=== PATIENT | male | born 1975 | race American Indian/Alaskan Native ===

== ENCOUNTER 2016-11-11 20:53 | Emergency (ER) | payer OTHER, MEDICAID ==
[2016-11-11 22:30] VITALS: BP 154/99
[2016-11-12] MEDS ORDERED: Acetaminophen/oxyCODONE 325-5 MG Tab PO ONE (00:04)
[2016-11-12] MEDS ORDERED: valACYclovir 1,000 MG Tab PO ONE (00:04)
--- NOTE | 2016-11-12 00:09 | EDM.PDOC ---
ED HPI GENERAL MEDICAL PROBLEM - General Chief Complaint: Abdominal Pain Stated Complaint: LEFT SIDE PAIN Time Seen by Provider: 11/12/16 00:03 Source of Information: Reports: Patient History Limitations: Reports: No Limitations - History of Present Illness INITIAL COMMENTS - FREE TEXT/NARRATIVE: 41-year-old male presents to the ED with left flank back and upper abdominal pain. States he's been having pain in this area for about 4 days. He appreciated the development of a rash in the left flank over the last 48 hours. Pain is perhaps a little bit better since this occurred. States he's had nausea and vomiting yesterday but none so far today. It's bowel function is normal. No fever or chills. Skin is super sensitive to touch even getting dressed or wearing a shirt bothers him. Onset: Gradual (Pain developed approximately November 07 but rash was appreciated November 10.) Onset Date: 11/10/16 Duration: Day(s): (Appreciated rash in his left flank.) Location: Reports: Back (Left flank left upper abdomen) Quality: Reports: Burning, Other (Skin is hyper-paresthetic.) Severity: Moderate Improves with: Reports: None Worsens with: Reports: Other Context: Denies: Activity (Touching the skin or surrounding skin causes exquisite pain.), Exercise, Lifting, Sick Contact, Trauma, Other Associated Symptoms: Reports: Loss of Appetite, Malaise. 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.) Left Upper Abdomen Pain Score (Numeric/FACES): 7 - Related Data Allergies Allergy/AdvReac Type Severity Reaction Status Date / Time No Known Allergies Allergy Verified 11/11/16 22:26 Home Meds: Home Meds Lisinopril 40 mg PO DAILY 11/11/16 [History] Metoprolol Tartrate 25 mg PO DAILY 11/11/16 [History] oxyCODONE HCl/Acetaminophen [Percocet 5-325 mg Tablet] 1 - 2 each PO Q4H PRN # 30 tablet 11/12/16 [Rx] valACYclovir HCl [valACYclovir] 1,000 mg PO TID #21 tablet 11/12/16 [Rx] Past Medical History Cardiovascular History: Reports: Hypertension Social & Family History - Living Situation & Occupation Living situation: Reports: with Significant Other Occupation: Employed ED ROS GENERAL - Review of Systems Review Of Systems: See Below Constitutional: Reports: Malaise, Fatigue, Decreased Appetite (The last 3 days.) . Denies: Fever, Chills, Weakness, Weight Loss HEENT: Reports: No Symptoms Respiratory: Reports: No Symptoms Cardiovascular: Reports: No Symptoms Endocrine: Reports: No Symptoms GI/Abdominal: Reports: Abdominal Pain (Has pain in his left upper quadrant of the abdomen. He states he vomited once yesterday. Contain normal bilious). Denies: Anorexia ( materials.), Black Stool, Bloody Stool, Difficulty Swallowing : Reports: No Symptoms Musculoskeletal: Reports: Back Pain (Left flank) Skin: Reports: Rash (Typical cluster of maculopapular rash left flank compatible with shingles. There are 2 early or developing lesions anteriorly in the midaxillary line. Inflammation appears to be in the T8 dermatome) Neurological: Reports: Other (hyperparaesthesia over the Lt flank and lateral abdominal wall. ) Psychiatric: Reports: No Symptoms Hematologic/Lymphatic: Reports: No Symptoms Immunologic: Reports: No Symptoms ED EXAM, GI/ABD - Physical Exam Exam: See Below Exam Limited By: No Limitations General Appearance: Alert, WD/WN, No Apparent Distress Eyes: Bilateral: Normal Appearance Head: Atraumatic, Normocephalic Neck: Normal Inspection, Supple, Non-Tender, Full Range of Motion. No: Lymphadenopathy (L), Lymphadenopathy (R) Respiratory/Chest: No Respiratory Distress, Lungs Clear, Normal Breath Sounds, No Accessory Muscle Use Cardiovascular: Normal Peripheral Pulses, Regular Rate, Rhythm, No Edema, No Murmur GI/Abdominal Exam: Normal Bowel Sounds, No Organomegaly, No Abnormal Bruit, No Mass, Pelvis Stable ( No organomegaly or masses were noted.), Other (The skin in the left upper quadrant and lateral axillary line is tender to touch i.e. hyperperistaltic.) (Male) Exam: No Hernia Back Exam: Other (Patient has a cluster of vesicular lesions with slight crusting in the left flank lateral to the mid scapular line. These have the characteristic appearance of shingles.) Extremities: Normal Inspection, Normal Range of Motion, Non-Tender, No Pedal Edema Neurological: Alert, Oriented, CN II-XII Intact, Normal Cognition, Normal Gait Psychiatric: Normal Affect, Normal Mood Skin Exam: Zoster-Like Rash (Left flank in the mid scapular line. Peers to involve the T8 dermatome.) Course - Vital Signs Last Recorded V/S: Last Vital Signs Temp 36.2 C 11/11/16 22:18 Pulse 80 11/11/16 22:18 Resp 16 11/11/16 22:18 BP 154/99 H 11/11/16 22:18 Pulse Ox 97 11/11/16 22:18 - Orders/Labs/Meds Meds: Medications Discontinued Medications Generic Name Dose Route Start Last Admin Trade Name Freq PRN Reason Stop Dose Admin Oxycodone/Acetaminophen 2 tab 11/12/16 00:04 11/12/16 00:27 Percocet 325-5 Mg PO 11/12/16 00:05 2 tab ONETIME ONE Administration Valacyclovir HCl 1,000 mg 11/12/16 00:04 Valtrex PO 11/12/16 00:05 ONETIME ONE Valacyclovir HCl Confirm 11/12/16 00:28 11/12/16 00:34 Valtrex Administered 11/12/16 00:29 Not Given Dose 1,000 mg .ROUTE .STK-MED ONE Valacyclovir HCl 1,000 mg 11/12/16 00:32 11/12/16 00:33 Valtrex PO 11/12/16 00:33 1,000 mg ONETIME ONE Administration - Radiology Interpretation Free Text/Narrative:: 41-year-old male presents the ED with left upper quadrant abdominal pain left flank pain of about 5 days' duration. He is appreciated a rash developing in the left flank area over the last 24-48 hours. He is not exactly sure. On examination he has shingles in the distribution of the T8 dermatome left side. This would explain his hyper-paresthetic skin in the left upper abdomen left lateral flank area. Treated with Valcyte Lavere 1 g 3 times a day with the first dose to be given in the ED since the drug stores are closed. Will be given Percocet 5/3/25 milligram tablets one or 2 every 4-6 hours for pain relief. First 2 tablets were provided in the ED and I will give him 5 tabs from the [facility] says since he does not have a credit card and Drug stores are closed. Departure - Departure Time of Disposition: 00:04 Disposition: Home, Self-Care 01 Condition: Fair Clinical Impression: Shingles outbreak Qualifiers: Herpes zoster complications: without complications Qualified Code(s): B02.9 - Zoster without complications - Discharge Information Prescriptions: oxyCODONE HCl/Acetaminophen [Percocet 5-325 mg Tablet] 1 - 2 each PO Q4H PRN # 30 tablet PRN Reason: pain relief. valACYclovir HCl [valACYclovir] 1,000 mg PO TID #21 tablet Instructions: Shingles, [id number] Referrals: PCP,Not In Area [Primary Care Provider] - Forms: ED Department Discharge Additional Instructions: Evaluation in the emergency room today in regards to left flank and abdominal pain. Appreciated pain over the last 3-4 days with outbreak of rash on her left flank area 2 days ago. Examination confirms the rash is due to shingles or recurrence of herpes zoster virus that comes from having the chickenpox when we were children. Treatment is to cleanse the area gently with water and mild soap. Clean T-shirt to cover the area daily until the wounds are scabbed over completely. The shingles rash usually breaks out over a period of about one week pain often starts to get better once the rash has completely involvement. Treatment is antiviral medication valacyclovir 1 g 3 times daily for the next week with the first dose started in the ED tonight. Continue either ibuprofen 600 mg every 6 hours or Aleve 2 tablets every 8 hours for pain and inflammation. May take Percocet tablets 07/27/24 one or 2 every 4-6 hours for pain not controlled by Aleve or Motrin alone. Expect gradual improvement over the next 3 weeks sore in the skin will not be near is sensitive to touch. Follow -up with personal physician if any other problems occur. As we discussed usage should stay away from small children and older folks whose immune system may not be in the best of shape until the shingles rash is completely broken out and scabbed over.
[2016-11-12] MEDS ORDERED: valACYclovir 500 MG Tab ONE (00:28)
[2016-11-12] MEDS ORDERED: valACYclovir 500 MG Tab PO ONE (00:32)
== END 2016-11-12 00:32 | disposition home or self-care (01) ==
LOC: JD.ED 20:53
DX: B02.9 Zoster without complications (principal); I10 Essential (primary) hypertension; Z79.899 Other long term (current) drug therapy
CPT/HCPCS: 99283; A9270